=== PATIENT | female | born 1950 | race Caucasian/White ===

== ENCOUNTER 2020-10-09 21:54 | Observation (INO) ==
[2020-10-09 22:53] LABS: Basophils % 0.4 % (0.0-0.8); Eosinophils # 0.1 10*3/uL (0.0-0.87); Eosinophils % 1.7 % (0.00-10.9); Hematocrit 35.5 VOL% (35.7-47.0); Immature Granulocytes % 0.8 %; Immature Granulocytes Absolute 0.04 #; Lymphocytes # 0.5 10*3/uL (1.4-4.0); Lymphocytes % 10.2 % (21.3-54.2); Mean Corpuscular Volume 96.7 FL (87-102); Mean Platelet Volume 8.9 FL (9.6-12.0); Monocytes % 7.7 % (1.7-12.7); Neutrophils % 79.2 % (38.7-73.9); Platelet Count 124 T/CUMM (130-400); Red Blood Count 3.67 MC/CUMM (3.8-5.5); White Blood Count 5.3 T/CUMM (4-12)
[2020-10-09 23:11] LABS: Albumin 3.7 G/DL (3.4-5.0); Bilirubin,Total 0.7 MG/DL (0.2-1.0); Osmolality,Calculated 276.8 MOS/KG (273-304); Potassium 3.9 MMOL/L (3.5-5.1); Total Protein 7.2 G/DL (6.4-8.2)
[2020-10-10] MEDS ORDERED: ENOXAPARIN 60 MG/0.6 ML SYRINGE SUBCUT STA (01:45)
[2020-10-10 02:13] LABS: Bilirubin,Urine Negative (Negative); Blood, Urine Small mg/dL (Negative); Glucose,Urine (UA) Negative (Negative); Ketones,Urine 5 mg/dL (Negative); Nitrite,Urine Negative (Negative); Protein,Urine Negative; RBC,Urine 1 /HPF (0-4); Squamous Epithelial Cell,Urine Occasional /HPF (0-10); Urine Appearance CLEAR (Clear); Urine Color Colorless (Yellow); Urine Specific Gravity 1.025 (1.001-1.035); Urine Urobilinogen < 2.0 EU/DL (0.2-1.0)
[2020-10-10] MEDS ORDERED: DEXTROSE 50% 25 GM/50 ML VIAL IV PRN (02:19)
[2020-10-10] MEDS ORDERED: GLUCAGON 1 MG VIAL IM PRN (02:19)
[2020-10-10] MEDS ORDERED: ONDANSETRON 4 MG/2 ML VIAL IV PRN (02:19)
[2020-10-10] MEDS ORDERED: NICOTINE 21 MG/24 HR PATCH TRANSDERM PRN (02:19)
[2020-10-10] MEDS ORDERED: diphenhydrAMINE CAP 25 MG CAPSULE PO PRN (02:19)
[2020-10-10] MEDS ORDERED: hydrALAZINE 20 MG/1 ML VIAL IV PRN (02:19)
[2020-10-10] MEDS: MORPHINE 4 MG/1 ML VIAL IV PRN ×2 (02:40→08:51)
[2020-10-10] MEDS: SODIUM CHLORIDE 0.9% 1,000 ML IV SCH (02:58)
[2020-10-10] MEDS: ENOXAPARIN 80 MG/0.8 ML SYRINGE SUBCUT SCH ×2 (08:52→21:31)
[2020-10-10] MEDS: HYDROmorphone 2 MG/1 ML VIAL IV PRN (10:07)
[2020-10-10 12:01] LABS: INR 1.1; PT Patient Result 12.1 SECS (10.5-12.0)
[2020-10-10 13:16] LABS: Hepatitis B Core IgM Quant < 0.05 Index; Hepatitis B Surface Ag Quant < 0.10 Index; Hepatitis B Surface Ag Result Non-Reactive (NonReactive); Hepatitis C Virus Ab Quant > 11.00 Index; Hepatitis C Virus Ab Result Reactive (NonReactive)
[2020-10-10] MEDS ORDERED: DICLOFENAC 1% GEL 100 GM TUBE TOP PRN (14:34)
[2020-10-10] MEDS ORDERED: METHOCARBAMOL 500 MG TABLET PO PRN (14:34)
[2020-10-10] MEDS ORDERED: MELOXICAM 7.5 MG TABLET PO PRN (14:40)
[2020-10-10] MEDS ORDERED: LORazepam 2 MG/1 ML VIAL IV ONE (15:57)
[2020-10-10] MEDS: oxyCODONE IR 5 MG TABLET PO SCH ×2 (18:12→21:31)
[2020-10-10] MEDS: DIVALPROEX 250 MG TABLET PO SCH (21:30)
[2020-10-10] MEDS: BUPRENORPHINE BUCCAL SCH (22:42)
[2020-10-11] MEDS: HYDROmorphone 2 MG/1 ML VIAL IV PRN ×3 (02:02→10:36)
[2020-10-11 06:13] LABS: Basophils % 0.4 % (0.0-0.8); Eosinophils # 0.1 10*3/uL (0.0-0.87); Eosinophils % 4.3 % (0.00-10.9); Hematocrit 34.4 VOL% (35.7-47.0); Hemoglobin 11.1 GM/DL (12.0-16.0); Immature Granulocytes % 1.1 %; Immature Granulocytes Absolute 0.03 #; Lymphocytes % 34.1 % (21.3-54.2); Mean Corpuscular HGB Conc 32.3 GM/DL (32-36); Mean Platelet Volume 8.9 FL (9.6-12.0); Monocytes % 12.2 % (1.7-12.7); Neutrophils % 47.9 % (38.7-73.9); Platelet Count 105 T/CUMM (130-400); Red Cell Distribution Width 13.7 % (9.3-17.3); White Blood Count 2.8 T/CUMM (4-12)
[2020-10-11 06:39] LABS: Albumin 3.3 G/DL (3.4-5.0); Bilirubin,Total 1.1 MG/DL (0.2-1.0); Calcium 8.8 MG/DL (8.5-10.1); Potassium 3.5 MMOL/L (3.5-5.1); Total Protein 6.7 G/DL (6.4-8.2)
[2020-10-11 08:12] LABS: Hypochromasia Slight; Platelet Estimate Adequate
[2020-10-11] MEDS: ENOXAPARIN 80 MG/0.8 ML SYRINGE SUBCUT SCH (08:16)
[2020-10-11] MEDS: oxyCODONE IR 5 MG TABLET PO SCH ×2 (08:17→13:10)
[2020-10-11] MEDS: DIVALPROEX 250 MG TABLET PO SCH (08:17)
[2020-10-11] MEDS ORDERED: valACYclovir 500 MG TABLET PO SCH (09:00)
[2020-10-11] MEDS ORDERED: CHOLECALCIFEROL 1,000 UNIT TABLET PO SCH (09:00)
[2020-10-11] MEDS ORDERED: VENLAFAXINE XR 75 MG CAPSULE PO SCH (09:00)
[2020-10-11] MEDS: BUPRENORPHINE BUCCAL SCH (09:06)
[2020-10-11] MEDS: SODIUM CHLORIDE 0.9% 1,000 ML IV SCH ×2 (09:06)
[2020-10-11 11:52] VITALS: BP 108/54
== END 2020-10-11 14:40 | disposition home or self-care (01) ==
LOC: N.EDINP 21:54 → N.ED 21:54 → N.5E 10-10 03:40
PROVIDERS: ADMIT Internal Medicine; ATTEND Internal Medicine

== ENCOUNTER 2020-11-04 19:57 | Inpatient (IN) ==
[2020-11-04] MEDS ORDERED: SODIUM CHLORIDE 0.9% 500 ML IV STA (22:39)
[2020-11-04] MEDS ORDERED: ONDANSETRON 4 MG/2 ML VIAL IV STA (22:39)
[2020-11-04 22:47] LABS: Basophils % 0.5 % (0.0-0.8); Eosinophils # 0.1 10*3/uL (0.0-0.87); Eosinophils % 2.6 % (0.00-10.9); Hematocrit 35.3 VOL% (35.7-47.0); Hemoglobin 11.3 GM/DL (12.0-16.0); Immature Granulocytes % 0.5 %; Immature Granulocytes Absolute 0.02 #; Lymphocytes # 0.6 10*3/uL (1.4-4.0); Lymphocytes % 14.7 % (21.3-54.2); Mean Corpuscular Volume 91.7 FL (87-102); Mean Platelet Volume 9.8 FL (9.6-12.0); Monocytes % 14.9 % (1.7-12.7); Neutrophils % 66.8 % (38.7-73.9); Platelet Count 166 T/CUMM (130-400); Red Blood Count 3.85 MC/CUMM (3.8-5.5); Red Cell Distribution Width 15.7 % (9.3-17.3); White Blood Count 3.9 T/CUMM (4-12)
[2020-11-04 23:06] LABS: Albumin 3.3 G/DL (3.4-5.0); Bilirubin,Total 1.5 MG/DL (0.2-1.0); Calcium 8.6 MG/DL (8.5-10.1); Potassium 4.3 MMOL/L (3.5-5.1)
[2020-11-04 23:39] LABS: Bilirubin,Urine Small mg/dL (Negative); Blood, Urine Negative (Negative); Glucose,Urine (UA) Negative (Negative); Ketones,Urine 20 mg/dL (Negative); Mucus,Urine Occasional /LPF (Occasional); Nitrite,Urine Negative (Negative); Protein,Urine 30 MG/DL; RBC,Urine 2 /HPF (0-4); Squamous Epithelial Cell,Urine Occasional /HPF (0-10); Urine Appearance CLEAR (Clear); Urine Color Amber (Yellow); Urine Specific Gravity 1.026 (1.001-1.035)
[2020-11-05] MEDS: HYDROmorphone 2 MG/1 ML VIAL IV ONE ×2 (00:44→01:12)
[2020-11-05] MEDS ORDERED: PROMETHAZINE 25 MG/1 ML VIAL IM STA (01:12)
[2020-11-05] MEDS ORDERED: CIPROFLOXACIN INJ 400 MG/200 ML PREMIX IV STA (01:14)
[2020-11-05] MEDS ORDERED: ACETAMINOPHEN 325 MG TABLET PO PRN (04:58)
[2020-11-05] MEDS ORDERED: PROMETHAZINE 25 MG/1 ML VIAL IM PRN (04:58)
[2020-11-05] MEDS ORDERED: guaiFENesin/DM ER 600-30 MG TABLET PO PRN (04:58)
[2020-11-05] MEDS ORDERED: DEXTROSE 50% 25 GM/50 ML VIAL IV PRN (04:58)
[2020-11-05] MEDS ORDERED: NICOTINE 21 MG/24 HR PATCH TRANSDERM PRN (04:58)
[2020-11-05] MEDS ORDERED: ONDANSETRON 4 MG/2 ML VIAL IV PRN (04:58)
[2020-11-05] MEDS ORDERED: hydrALAZINE 20 MG/1 ML VIAL IV PRN (04:58)
[2020-11-05] MEDS ORDERED: traZODone 50 MG TABLET PO PRN (04:58)
[2020-11-05] MEDS ORDERED: diphenhydrAMINE CAP 25 MG CAPSULE PO PRN (04:58)
[2020-11-05] MEDS ORDERED: GLUCAGON 1 MG VIAL IM PRN (04:58)
[2020-11-05] MEDS: metroNIDAZOLE INJ 500 MG/100 ML PREMIX IV SCH ×3 (07:03→21:30)
[2020-11-05] MEDS: SPIRONOLACTONE 50 MG TABLET PO SCH (09:56)
[2020-11-05] MEDS: MORPHINE 4 MG/1 ML VIAL IV PRN ×2 (13:23→21:23)
[2020-11-05] MEDS: CIPROFLOXACIN INJ 400 MG/200 ML PREMIX IV SCH (14:04)
[2020-11-05] MEDS: oxyCODONE IR 5 MG TABLET PO PRN ×2 (15:37→20:34)
[2020-11-05] MEDS ORDERED: DICLOFENAC 1% GEL 100 GM TUBE TOP PRN (19:49)
[2020-11-05] MEDS ORDERED: MELOXICAM 7.5 MG TABLET PO PRN (19:49)
[2020-11-05] MEDS: DIVALPROEX 250 MG TABLET PO SCH (20:29)
[2020-11-05] MEDS: PREGABALIN 50 MG CAPSULE PO SCH (20:29)
[2020-11-05] MEDS: busPIRone 15 MG TABLET PO SCH (20:29)
[2020-11-05 21:53] LABS: Hematocrit 34.7 VOL% (35.7-47.0); Hemoglobin 11.1 GM/DL (12.0-16.0); Immature Granulocytes % 0.9 %; Immature Granulocytes Absolute 0.04 #; Lymphocytes # 0.5 10*3/uL (1.4-4.0); Mean Corpuscular Volume 91.3 FL (87-102); Monocytes % 10.7 % (1.7-12.7); Neutrophils % 78.4 % (38.7-73.9); Platelet Count 159 T/CUMM (130-400); Red Cell Distribution Width 15.9 % (9.3-17.3); White Blood Count 4.6 T/CUMM (4-12)
[2020-11-05 22:15] LABS: INR 1.2; PT Patient Result 13.5 SECS (10.5-12.0)
[2020-11-06] MEDS: oxyCODONE IR 5 MG TABLET PO PRN ×5 (00:15→20:36)
[2020-11-06] MEDS: CIPROFLOXACIN INJ 400 MG/200 ML PREMIX IV SCH ×2 (01:55→15:37)
[2020-11-06] MEDS: metroNIDAZOLE INJ 500 MG/100 ML PREMIX IV SCH ×3 (06:11→21:46)
[2020-11-06 06:12] LABS: Basophils % 0.2 % (0.0-0.8); Hematocrit 34.6 VOL% (35.7-47.0); Hemoglobin 11.1 GM/DL (12.0-16.0); Immature Granulocytes % 0.9 %; Immature Granulocytes Absolute 0.05 #; Lymphocytes # 0.6 10*3/uL (1.4-4.0); Mean Corpuscular HGB Conc 32.1 GM/DL (32-36); Mean Corpuscular Volume 90.3 FL (87-102); Mean Platelet Volume 9.4 FL (9.6-12.0); Monocytes % 12.1 % (1.7-12.7); Neutrophils % 75.8 % (38.7-73.9); Platelet Count 177 T/CUMM (130-400); Red Blood Count 3.83 MC/CUMM (3.8-5.5); Red Cell Distribution Width 16.2 % (9.3-17.3); White Blood Count 5.6 T/CUMM (4-12)
[2020-11-06 06:50] LABS: Bilirubin,Total 1.3 MG/DL (0.2-1.0); Calcium 8.6 MG/DL (8.5-10.1); Osmolality,Calculated 271.2 MOS/KG (273-304); Total Protein 6.5 G/DL (6.4-8.2)
[2020-11-06] MEDS: busPIRone 15 MG TABLET PO SCH ×2 (08:47→20:35)
[2020-11-06] MEDS: FLUoxetine 20 MG CAPSULE PO SCH (08:47)
[2020-11-06] MEDS: DIVALPROEX 250 MG TABLET PO SCH ×2 (08:47→20:35)
[2020-11-06] MEDS: PREGABALIN 50 MG CAPSULE PO SCH ×2 (08:47→20:35)
[2020-11-06] MEDS: SPIRONOLACTONE 50 MG TABLET PO SCH ×2 (08:47→20:36)
[2020-11-06] MEDS: LOSARTAN 50 MG TABLET PO SCH (08:47)
[2020-11-06] MEDS: MORPHINE 4 MG/1 ML VIAL IV PRN ×3 (08:48→23:59)
[2020-11-06] MEDS ORDERED: PANTOPRAZOLE 40 MG TABLET PO SCH (09:00)
[2020-11-06] MEDS ORDERED: ACETAMINOPHEN 500 MG TABLET PO PRN (09:08)
[2020-11-06] MEDS ORDERED: ONDANSETRON 4 MG/2 ML VIAL IV PRN (09:08)
[2020-11-06] MEDS ORDERED: MORPHINE 4 MG/1 ML VIAL IV PRN (09:11)
[2020-11-06] MEDS: FUROSEMIDE 40 MG TABLET PO SCH (16:52)
[2020-11-06] MEDS: ALUMINUM/MAGNES/SIMETH MAX STR 30 ML UDCUP PO PRN (19:28)
[2020-11-06] MEDS: PANTOPRAZOLE 40 MG TABLET PO SCH (20:35)
[2020-11-07] MEDS: oxyCODONE IR 5 MG TABLET PO PRN ×2 (01:58→08:59)
[2020-11-07] MEDS: CIPROFLOXACIN INJ 400 MG/200 ML PREMIX IV SCH (02:20)
[2020-11-07 05:19] LABS: Eosinophils % 0.2 % (0.00-10.9); Hematocrit 32.9 VOL% (35.7-47.0); Hemoglobin 10.8 GM/DL (12.0-16.0); Immature Granulocytes % 0.5 %; Immature Granulocytes Absolute 0.03 #; Lymphocytes # 0.6 10*3/uL (1.4-4.0); Lymphocytes % 11.5 % (21.3-54.2); Mean Corpuscular HGB Conc 32.8 GM/DL (32-36); Mean Corpuscular Volume 89.4 FL (87-102); Mean Platelet Volume 8.8 FL (9.6-12.0); Monocytes % 11.3 % (1.7-12.7); Neutrophils % 76.5 % (38.7-73.9); Platelet Count 160 T/CUMM (130-400); Red Blood Count 3.68 MC/CUMM (3.8-5.5); White Blood Count 5.6 T/CUMM (4-12)
[2020-11-07 05:48] LABS: Albumin 2.7 G/DL (3.4-5.0); Bilirubin,Total 1.4 MG/DL (0.2-1.0); Calcium 8.2 MG/DL (8.5-10.1); Osmolality,Calculated 271.1 MOS/KG (273-304); Potassium 3.5 MMOL/L (3.5-5.1); Total Protein 6.2 G/DL (6.4-8.2)
[2020-11-07] MEDS: ALUMINUM/MAGNES/SIMETH MAX STR 30 ML UDCUP PO PRN (05:52)
[2020-11-07] MEDS: MORPHINE 4 MG/1 ML VIAL IV PRN ×2 (05:54→11:14)
[2020-11-07] MEDS: metroNIDAZOLE INJ 500 MG/100 ML PREMIX IV SCH (05:55)
[2020-11-07] MEDS: PREGABALIN 50 MG CAPSULE PO SCH (10:41)
[2020-11-07] MEDS: SPIRONOLACTONE 50 MG TABLET PO SCH (10:46)
[2020-11-07] MEDS: FUROSEMIDE 40 MG TABLET PO SCH (10:47)
[2020-11-07] MEDS: PANTOPRAZOLE 40 MG TABLET PO SCH (10:49)
[2020-11-07] MEDS: busPIRone 15 MG TABLET PO SCH (10:50)
[2020-11-07] MEDS: LOSARTAN 50 MG TABLET PO SCH (10:50)
[2020-11-07] MEDS: DIVALPROEX 250 MG TABLET PO SCH (10:50)
[2020-11-07] MEDS: FLUoxetine 20 MG CAPSULE PO SCH (10:51)
[2020-11-07 11:54] VITALS: BP 135/65
== END 2020-11-07 13:05 | disposition home or self-care (01) | DRG 435 ==
LOC: N.EDINP 19:57 → N.ED 19:57 → N.4E 11-05 03:14
PROVIDERS: ADMIT Emergency Medicine; ATTEND Emergency Medicine